=== PATIENT | female | born 1990 | race African-American/Black ===

== ENCOUNTER 2021-03-31 13:42 | Outpatient (CLI) | payer OTHER, SELFPAY ==
--- NOTE | ~2021-03-31 | US_ITS ---
EXAMINATION: US OB <= 14 weeks fetus DATE: 03/31/2021 14:18 INDICATION: Encounter for supervision and dating of normal during first trimester. TECHNIQUE: Real-time pelvic ultrasound utilizing transabdominal probe was performed. The andre vides radiologist was not present for the study. COMPARISON: None. FINDINGS: The uterus measures 11.2 x 8.7 x 8.3 cm. There is an intrauterine gestational sac. A yolk sac and fe dominick pole are identified. The crown rump length measures 2.2 cm, which correlates with an estimated ge stational age of 9 weeks and 0 days. heart motion is identified measuring 167 beats per minute (bpm) by M-mode Doppler. The bilateral ovaries are not visualized. There is no free fluid in the pelv is. IMPRESSION: 1. Single living fetus with heart rate of 167 bpm. 2. Gestational age by ultrasound of 9 weeks 0 day(s) +/- 6 day(s) with ultrasound estimated date of delivery (DIALLO) of 11/03/2021. Reviewed, dictated and finalized at location A. EBOARD OPERATOR IMPRESSION: 1. Single living fetus with heart rate of 167 bpm. 2. Gestational age by ultrasound of 9 weeks 0 day(s) +/- 6 day(s) with ultraso und estimated date of delivery (DIALLO) of 11/03/2021.
== END 2021-03-31 13:43 | disposition home or self-care (01) ==
PROVIDERS: Visit Provider Obstetrics & Gynecology
DX: Z34.91 Encounter for supervision of normal pregnancy, unspecified, first trimester (principal); Z3A.09 9 weeks gestation of pregnancy
CPT/HCPCS: 76801

== ENCOUNTER 2021-07-22 11:14 | Outpatient (CLI) | payer OTHER, SELFPAY ==
[2021-07-22 19:32] LABS: Basophils Percent Auto 0.3 % (0.2-1.2); Eosinophils Percent Auto 0.1 % (0-4.4); Hematocrit 37.3 % (37.0-47.0); Hemoglobin 11.8 g/dL (12.0-15.0); Immature Granulocyte Absolute 0.16 K/mm3 (0.00-0.031); Immature Granulocyte Percent A 1.4 % (0-0.5); Lymphocytes Absolute Auto 1.36 K/mm3 (0.9-3.2); Lymphocytes Percent Auto 11.6 % (18.3-44.2); Mean Corpuscular HGB Conc 31.6 g/dl (32-36); Mean Corpuscular Hemoglobin 31.9 pg (26-34); Mean Corpuscular Volume 100.8 fl (80-100); Monocytes Absolute Auto 0.4 K/mm3 (0.1-0.6); Monocytes Percent Auto 3.4 % (2.6-8.5); Neutrophils Absolute Auto 9.8 K/mm3 (1.3-6.7); Neutrophils Percent Auto 83.2 % (45.5-73.1); Platelet Count Result 232 k/mm3 (150-375); Red Cell Distribution Width 13.5 % (11.5-14.5); White Blood Count 11.7 K/mm3 (4.5-10.0)
[2021-07-22 19:40] LABS: Glucose 1 Hour PP 50gm Dose 112 mg/dL
[2021-07-22 21:27] LABS: Hepatitis B Surface Antigen Negative (Negative)
[2021-07-22 21:44] LABS: Hepatitis C Virus Antibody Negative (Negative)
[2021-07-22 21:57] LABS: Vitamin D 25 Hydroxy 22.9 ng/mL
== END 2021-07-22 11:15 | disposition home or self-care (01) ==
LOC: ANHBWCLAB 11:15
PROVIDERS: Visit Provider Student in an Organized Health Care Education/Training Program
DX: Z34.82 Encounter for supervision of other normal pregnancy, second trimester (principal); Z3A.00 Weeks of gestation of pregnancy not specified
CPT/HCPCS: 36415; 82306; 82947; 85025; 86803; 87340

== ENCOUNTER 2021-09-02 14:17 | Observation (INO) | payer OTHER, SELFPAY ==
[2021-09-02 14:49] VITALS: BP 120/60; PULSE 86
[2021-09-02 15:00] VITALS: BP 107/62; PULSE 87
--- NOTE | 2021-09-02 17:30 | OBADM ---
This patient, Karie Bran, admitted to the OB room OB Post 111 for observation. Patient/family oriented to hospital policies and general routines including ID bracelet, bed and alarms, visiting hours, pain management, procedures, bathroom and other care routines, personal items, smoking policy, room service/diet, and visiting hours. Patient/Family are encouraged to report perceived risks to care and to ask questions if they do not understand what they are told or what they should do.
--- NOTE | 2021-09-22 11:10 | PM.OBTRLD ---
OB - Triage/Final Diagnosis Visit Information Comments/Additional reasons for admission: I have assessed the risk for this patient, Karie Bran, and determined that she would benefit from observation care. Final Diagnosis (1) Spotting during : Code(s): O26.859 - Spotting complicating , unspecified trimester Status: Acute
== END 2021-09-02 15:30 | disposition home or self-care (01) ==
PROVIDERS: Admitting Provider Student in an Organized Health Care Education/Training Program; Visit Provider Student in an Organized Health Care Education/Training Program
DX: O26.853 Spotting complicating pregnancy, third trimester (principal); Z3A.31 31 weeks gestation of pregnancy
CPT/HCPCS: G0378; G0379

== ENCOUNTER 2021-09-23 10:11 | Observation (INO) | payer OTHER, SELFPAY ==
[2021-09-23] VITALS (8 sets, daily range): BP systolic 86–123; BP diastolic 47–71; PULSE 79–103; RESP 16; TEMP 36.8; BMI 35.4
--- NOTE | 2021-09-23 11:12 | OBADM ---
This patient, Karie Bran, admitted to the OB room 116 for observation for vaginal spotting. Patient/family oriented to hospital policies and general routines including ID bracelet, bed and alarms, visiting hours, pain management, procedures, bathroom and other care routines, personal items, smoking policy, room service/diet, and visiting hours. Patient/Family are encouraged to report perceived risks to care and to ask questions if they do not understand what they are told or what they should do.
[2021-09-23 11:35] LABS: Appearance Urine Clear (Clear); Bilirubin Urine Negative (Negative); Blood Urine 2+ (Negative); Color Urine Yellow (Yellow); Glucose Urine UA Negative (Negative); Ketones Urine Negative (Negative); Leukocyte Esterase Ur Negative LEU/UL (Negative); Nitrate Urine Negative (Negative); Protein Urine Negative (Negative); Urobilinogen Urine 0.2 mg/dL (<2.0)
[2021-09-23 11:47] LABS: Bacteria Urine Trace /hpf; RBC Urine 0-2 /hpf (0-2); Squamous Epithelial Cell Urine Rare /hpf (Few); WBC Urine 0-3 /hpf
[2021-09-23 11:48] LABS: Add Urine Microscopic? YES
[2021-09-23] MEDS: NIFEdipine 10 MG CAPSULE 20 MG PO (15:08)
[2021-09-23 17:45] LABS: Basophils Percent Auto 0.2 % (0.2-1.2); Eosinophils Percent Auto 0.2 % (0-4.4); Hematocrit 34.4 % (37.0-47.0); Hemoglobin 10.9 g/dL (12.0-15.0); Immature Granulocyte Absolute 0.09 K/mm3 (0.00-0.031); Immature Granulocyte Percent A 0.9 % (0-0.5); Lymphocytes Absolute Auto 1.68 K/mm3 (0.9-3.2); Mean Corpuscular HGB Conc 31.7 g/dl (32-36); Mean Corpuscular Hemoglobin 30.4 pg (26-34); Mean Corpuscular Volume 96.1 fl (80-100); Mean Platelet Volume 9.6 fl (7.4-10.4); Monocytes Absolute Auto 0.6 K/mm3 (0.1-0.6); Monocytes Percent Auto 5.3 % (2.6-8.5); Neutrophils Absolute Auto 8.1 K/mm3 (1.3-6.7); Neutrophils Percent Auto 77.4 % (45.5-73.1); Platelet Count Result 218 k/mm3 (150-375); Red Blood Count 3.58 M/mm3 (4.2-5.4); Red Cell Distribution Width 13.8 % (11.5-14.5); White Blood Count 10.5 K/mm3 (4.5-10.0)
[2021-09-23 18:45] LABS: HIV 1/2 Ab P24 Ag Result Negative (Negative)
[2021-09-24 07:04] LABS: Rapid Plasma Reagin Non-Reactive (NonReactive)
--- NOTE | 2021-10-09 12:11 | PM.OBTRLD ---
OB - Triage/Final Diagnosis Visit Information Comments/Additional reasons for admission: I have assessed the risk for this patient, Karie Bran, and determined that she would benefit from observation care. Evaluation Laboratory results: Laboratory Tests 09/23/21 09/23/21 09/23/21 11:28 17:21 17:21 WBC 10.5 H RBC 3.58 L Hgb 10.9 L Hct 34.4 L MCV 96.1 MCH 30.4 MCHC 31.7 L RDW 13.8 Plt Count 218 MPV 9.6 Immature Gran % (Auto) 0.9 H Neut % (Auto) 77.4 H Lymph % (Auto) 16.0 L [place] % (Auto) 5.3 Eos % (Auto) 0.2 Baso % (Auto) 0.2 Lymph # (Auto) 1.68 [place] # (Auto) 0.6 Eos # (Auto) 0.0 Baso # (Auto) 0.0 Abs Immat Gran (auto) 0.09 H Absolute Neuts (auto) 8.1 H Absolute Nucleated RBC 0.0 Nucleated RBC % 0.0 Urine Color Yellow Urine Appearance Clear Urine pH 7.0 Ur Specific [place] 1.010 Urine Protein Negative Urine Glucose (UA) Negative Urine Ketones Negative Ur Blood (Man) 2+ H Urine Nitrate Negative Urine Bilirubin Negative Urine Urobilinogen 0.2 Leukocyte Esterase Rfl Negative Urine RBC 0-2 Urine WBC 0-3 Ur Squamous Epith Cells Rare Urine Bacteria Trace RPR Non-reactive HIV 1&2 Ab/P24 Ag 4thGn 09/23/21 17:21 WBC RBC Hgb Hct MCV MCH MCHC RDW Plt Count MPV Immature Gran % (Auto) Neut % (Auto) Lymph % (Auto) [place] % (Auto) Eos % (Auto) Baso % (Auto) Lymph # (Auto) [place] # (Auto) Eos # (Auto) Baso # (Auto) Abs Immat Gran (auto) Absolute Neuts (auto) Absolute Nucleated RBC Nucleated RBC % Urine Color Urine Appearance Urine pH Ur Specific [place] Urine Protein Urine Glucose (UA) Urine Ketones Ur Blood (Man) Urine Nitrate Urine Bilirubin Urine Urobilinogen Leukocyte Esterase Rfl Urine RBC Urine WBC Ur Squamous Epith Cells Urine Bacteria RPR HIV 1&2 Ab/P24 Ag 4thGn Negative Final Diagnosis (1) Spotting during : Code(s): O26.859 - Spotting complicating , unspecified trimester Status: Acute (2) contractions: Code(s): O47.00 - False labor before 37 completed weeks of gestation, unspecified trimester Status: Acute
== END 2021-09-23 17:27 | disposition home or self-care (01) ==
PROVIDERS: Admitting Provider Student in an Organized Health Care Education/Training Program; Visit Provider Student in an Organized Health Care Education/Training Program
DX: O26.859 Spotting complicating pregnancy, unspecified trimester (principal); Z3A.00 Weeks of gestation of pregnancy not specified
CPT/HCPCS: 36415; 81001; 85025; 86592; 86703; A9270; G0378; G0379; G0432

== ENCOUNTER 2021-10-28 10:49 | Outpatient (CLI) | payer OTHER, SELFPAY ==
[2021-10-28 11:26] LABS: Hematocrit 33.5 % (37.0-47.0); Mean Corpuscular HGB Conc 32.8 g/dl (32-36); Mean Corpuscular Hemoglobin 30.1 pg (26-34); Mean Corpuscular Volume 91.8 fl (80-100); Mean Platelet Volume 9.8 fl (7.4-10.4); Platelet Count Result 231 k/mm3 (150-375); Red Blood Count 3.65 M/mm3 (4.2-5.4); Red Cell Distribution Width 13.8 % (11.5-14.5); White Blood Count 8.6 K/mm3 (4.5-10.0)
[2021-10-29 12:51] LABS: Rapid Plasma Reagin Non-Reactive (NonReactive)
== END 2021-10-28 10:50 | disposition home or self-care (01) ==
LOC: ANHLAB 10:51
PROVIDERS: Visit Provider Student in an Organized Health Care Education/Training Program
DX: Z34.93 Encounter for supervision of normal pregnancy, unspecified, third trimester (principal); Z3A.00 Weeks of gestation of pregnancy not specified
CPT/HCPCS: 36415; 85027; 86592; 86850; 86900; 86901

== ENCOUNTER 2021-10-29 05:31 | Inpatient (IN) | payer OTHER, SELFPAY ==
--- NOTE | 2021-10-06 12:54 | PC.NURSE ---
Patient states Dr Cisse is going to talk with her on Wednesday about date and time of C/S . patient states she is going to have a tubal ligation also-consent signed Patient given requisition for lab drawn and instructed to be in OB 2 hours before surgery time and nothing to eat or drink after midnight the night before surgery--Patient verbalized her understanding
--- NOTE | 2021-10-28 12:26 | PM.IMHP ---
H&P: HPI History of Present Illness Date/Time: 10/28/21 12:26 Chief Complaint: She is a here today for scheduled elective repeat section and tubal ligation. She has satisfied parity. She declines all other nonpermanent forms of contraception. ?First section was performed for failure to progress.? Second section was a scheduled repeat. She is 39 weeks and 2 days by last menstrual period of January 26, 2021 with an EDC of 11/02/2020 consistent with a 9 week ultrasound. Title course has been uncomplicated. Labs reviewed. GBS negative. Review of Systems Review of Systems: All systems reviewed & are unremarkable except as noted in HPI and below Constitutional: Constitutional: Reports no additional constitutional complaints and Denies headache(s) Eyes: Eyes: Denies spots in vision ENT: Reports system reviewed and no additional complaints, except as documented and Denies headache(s) Cardiovascular: Cardiovascular: Denies chest pain and Denies dyspnea Respiratory: Respiratory: Denies dyspnea Gastrointestinal: Gastrointestinal: Reports no additional gastrointestinal complaints Genitourinary: Genitourinary: Reports amenorrhea Musculoskeletal: Musculoskeletal: Reports no additional musculoskeletal complaints Integumentary/Breasts: Skin/Breast: Denies breast mass and Denies rash Neurologic: Denies headache(s) Psychiatric: Psychiatric: Reports no additional psychiatric complaints PMF Past Medical History Medical History Failure to progress in labor Surgical History Surgical History History of delivery x2 Family History Family History Other No pertinent family history Social History Social History Smoking status: Never smoker Alcohol intake: never Substance use: never Spiritual care concerns: No Meds Home Medications and Allergies Home Medications Medication Instructions Recorded Confirmed Type prenat.vits,garrison,gln-qykf-vvvik 1 tablet PO DAILY 05/23/21 09/23/21 History cholecalciferol (vitamin D3) 25 1,000 unit PO DAILY 09/23/21 09/23/21 History mcg (1,000 unit) capsule (Vitamin D3) Allergies Allergy/AdvReac Type Severity Reaction Status Date / Time No Known Allergies Allergy Verified 10/24/21 12:49 Exam Const: General: no acute distress Eyes: General: appearance normal, both eyes and all related structures Resp: Effort & Inspection: normal respiratory effort Cardio: Rate: regular rate GI: Other: Gravid no fundal tenderness no right upper quadrant pain Skin: General skin exam: no rashes or lesions noted Neuro: Cognition (Neuro): normal cognition Extrem: General: normal to inspection Psych: Mental Status: mental status grossly normal Assessment and Plan Assessment and plan (1) Previous section: Code(s): Z98.891 - History of uterine scar from previous surgery Status: Acute Assessment and Plan: desires repeat section will be performed on October 29. (2) Encounter for sterilization: Code(s): Z30.2 - Encounter for sterilization Status: Acute Assessment and Plan: She has been counseled and consent signed she continues to desire sterilization declines all other nonpermanent forms of contraception. We will perform bilateral tubal ligation With either interruption of the fallopian tubes bilaterally or removal of the distal fallopian tube.
[2021-10-29] VITALS (45 sets, daily range): BP systolic 56–138; BP diastolic 41–94; PULSE 56–87; RESP 12–23; TEMP 35.7–36.9; O2SAT 98–100; BMI 35.4; BMI 36.3
--- OUTSIDE RECORDS SUMMARY | 2021-10-29 05:37 | XMS_ITS ---
:1990 Author Care Team Providers Name Role Phone Trevor Jay Primary Care Provider Unavailable Allergies Code Code System Name Reaction Severity Status Onset NKDA ? Medications Name Status Start Date Stop Date ? ? acyclovir 400 mg tablet Completed ? 07/31/19 azithromycin 500 mg tablet Completed ? 04/05 Calcium 600 with Vitamin D3 600 mg-10 mcg (400 unit) capsule Act constance ? Not available Take 1 capsule twice a day by oral route. calcium carbonate 600 mg-vitamin D3 10 mcg (400 unit) Active ? Not available tablet ceftriaxone 250 mg solution for injection Completed ? 04/05/2017 Take 250 mg by injection route for 1 day. Colace 100 mg capsule Completed ? 04/05/2017 Take 1 capsule twice a day by oral route as needed. ferrous sulfate 325 mg (65 mg iron) tablet Completed ? 04/05/2017 Take 1 tablet 3 times a day by oral route. fluconazole 150 mg tablet Completed ? 2016 ibuprofen 800 mg tablet Completed ? 04/05/20 17 Take 1 tablet 3 times a day by oral route as needed. lorazepam 0.5 mg tablet Completed ? 04/05/20 17 Macrobid 100 mg capsule Completed ? 03/17/20 21 Take 1 capsule every 12 hours by oral route as directed for 7 d ays. metoclopramide 10 mg tablet Active ? Not available metronidazole 0.75 % vaginal gel Active ? Not available metronidazole 500 mg tablet Completed ? 05/2020 minocycline 50 mg capsule Completed ? 2016 multivitamin tablet Active ? Not availabl e Take 1 tablet every day by oral route. naproxen 500 mg tablet Completed ? 7
--- NOTE | 2021-10-29 06:19 | LDADM ---
This patient, Karie Bran, was admitted to Labor/Delivery/Recovery 120 on 10/29/21 at 05:31. Plans for labor, pain management and were discussed with patient. Patient/family oriented to hospital policies and general routines including ID bracelet, bed and alarms, visiting hours, pain management, procedures, bathroom and other care routines, personal items, smoking policy, room service/diet and guest tray routines, security routines, and visiting hours. Patient/Family are encouraged to report perceived risks to care and to ask questions if they do not understand what they are told or what they should do. See OBIX for further documentation.
[2021-10-29] MEDS: LACTATED RINGERS 1,000 ML 125 ML IV CONT (06:30)
--- NOTE | 2021-10-29 07:00 | P.PNAN_ITS ---
Anes - Initial Pre Proc Eval Procedure: Operation Date: 10/29/21 07:30 Proposed Procedures p Repeat Section with Bilateral Tubal Sterilization - Weston Obando MD Date/Time: 10/29/21 07:00 Surgeon: Edith Cisse MD Pre Op Diagnosis: C/S Patient Data Age: 31 Gender: F Height: 1.57 m Weight: 90 kg Last Vital Signs Pulse 86 10/29/21 06:10 BP 138/78 10/29/21 06:10 O2 Del Method Room Air 10/29/21 06:18 Allergies Allergy/AdvReac Type Severity Reaction Status Date / Time No Known Allergies Allergy Verified 10/24/21 12:49 Home Medications Medication Instructions Recorded Confirmed Type prenat.vits,garrison,sau-ljwb-qkkzz 1 tablet PO DAILY 05/23/21 10/29/21 History cholecalciferol (vitamin D3) 25 1,000 unit PO DAILY 09/23/21 10/29/21 History mcg (1,000 unit) capsule (Vitamin D3) Patient hx anesthesia problems: none Family hx anesthesia problems: none Results Review: All pre-operative results and documents have been reviewed as part of the pre- operative evaluation. PMFSH Past Medical History Medical History Failure to progress in labor Surgical History Surgical History History of delivery x2 Family History Family History Other No pertinent family history Social History Social History Smoking status: Never smoker Alcohol intake: never Substance use: never Spiritual care concerns: No Anes - Eval Final PreProcedure Day of Procedure 10/29/21 07:00 Patient weight: obese Heart: regular rate and rhythm Lungs: clear to auscultation and normal air movement Airway: Mallampati scale class II Neurological: alert and oriented Last oral intake: >/= 8 hours ASA classification: II Emergent: no Anesthetic plan: proceed Anesthesia type and monitoring: regional spinal and standard monitoring Results Review: All pre-operative results and documents have been reviewed as part of the pre- operative evaluation. Informed Consent: The patient's anesthetic plan and its attendant risks and benefits were discussed with the patient/family/POA. Questions were solicited and answers provided to the satisfaction of the patient/family/POA.
--- NOTE | 2021-10-29 07:06 | WPDHPUPDATE1 ---
History and Physical Update Update Date/Time: 10/29/21 07:06 History and Physical has been reviewed, including an updated exam of the patient. There are NO changes in the patient's condition. Risks, benefits, and alternatives have been discussed and questions answered. Patient agrees to proceed with procedure.
[2021-10-29] MEDS: ceFAZolin 2 GM/D5W 50 ML 2 GM/50 ML BAG IVPB (07:16)
[2021-10-29] MEDS: KETOROLAC 30 MG/ML VIAL (*BKC) 15 MG IV PUSH (07:55)
[2021-10-29] MEDS: OXYTOCIN 30 UNITS/NS 500 ML 30 UNITS/500 ML BAG 125 UNITS IV CONT (09:06)
--- NOTE | 2021-10-29 10:31 | W.PM.PROC2 ---
Procedure Note - Detailed Date of Procedure 10/29/21 Pre-op Diagnosis Elective repeat and desire for permanent sterilization. Post-op Diagnosis Same Procedure Performed Repeat low transverse ceserean section and bilateral tubal ligation. Surgeon Weston Obando MD Seo Consultant [facility] Anesthesia Spinal Indications Patient with two prior sections and desired repeat and desired permanent sterilization. Findings Uterus and fallopian tubes and ovaries normal appearing, apgars 8,9 female, 8lb7oz. Description of Procedure After informed consent, risks and benefits of the procedure was discussed with the patient. The patient was taken to the operating room where she was placed in the dorsal lithotomy position with leftward tilt. After the prior placed epidural anesthesia was found to be adequate, she was then prepped and draped in the usual sterile fashion. A Pfannenstiel skin incision was made with a scalpel along her prior scar and carried through to the underlying layer of fascia. The fascia was then nicked in the midline, extending bilaterally. The fascia, which was very adhesed, was dissected off the rectus muscles sharply and with cautery, superiorly and inferiorly. The peritoneum was entered sharply. Adhesions of the omental tissue was palpated superior to the opening of the peritoneum. The rectus muscles were in the midline. The pelvic organs were visualized. The bladder blade was then inserted. The vesicouterine peritoneum was identified and entered sharply with Metzenbaum scissors and extended bilaterally and then the bladder flap was created digitally. The lower uterine segment was noted to be thin. The low transverse uterine incision was then made with the scalpel and extended with bilateral index fingers in a crescent-shaped fashion. The head was delivered and the rest of the was delivered. The infant was vigorously crying upon delivery.. The nose and mouth suctioned. The cord was clamped twice and cut. The infant was then handed off to the awaiting pediatric staff. The placenta was then delivered manually. The uterine cavity was sponge curetted. The uterus was then exteriorized. The uterine incision was then closed with 0 vicryl in a running locked fashion. A figure of eight of 0 vicryl at the right of incision was used for hemostasis. Hemostasis noted. A second layer of 0 vicryl was used in an imbricating fashion for hemostasis. Attention was turned to the right fallopian tube which was grasped in the ampullary region and a segment enclosed with 0 plain gut suture x 2. The enclosed segment was excised with the metzenbaum scissors. Hemostasis at pedicle was obtained with cautery. The attention was then turned to left fallopian tube which grasped at the ampullary region with a ras. The segment was enclosed with 2 sutures of 0 plain. The enclosed segment was excised with metzenbaum scissors. Pedicles were cauterized and hemostasis obtained. The uterus was then returned to the abdomen. Bilateral gutters were cleared off all clots and debris. The tubal segments were inspected and noted to be hemostatic. The uterine incision was inspected and noted to be hemostatic. The muscle bellies were inspected, there was an area on the right that had a small ooze at muscle fibers and this was cauterized and hemostasis was noted. The subfascial layer was noted to be hemostatic, and the fascia was closed with 0 Vicryl in a running fashion. The subcutaneous layer was then closed with 3-0 Vicryl in a subcutaneous fashion. The skin was closed with Insorb absorbable yas. Skin dermabond applied at incision. All instruments, needle, and lap counts were correct x3. The patient was taken to the recovery room in stable condition. Estimated Blood Loss -700.0 Drains No Packing No Pathology Yes (segment of right and left fallopian tube) Complications No immediate complications Condition Stable Disposition Floor JOYA Haro
--- NOTE | 2021-10-29 10:50 | OBPPTRN ---
Patient transferred to post room #279 via stretcher. Support person present. Oriented to unit, room, information board, rooming in, admission packet and security measures. Patient verbalizes understanding.
[2021-10-29] MEDS: METHYLERGONOVINE MALEATE 0.2 MG TABLET PO ×2 (11:59→17:38)
[2021-10-29] MEDS: KCL 20 MEQ/D5/0.45% SOD CHL 1,000 ML 125 ML IV CONT (13:23)
[2021-10-29] MEDS: IBUPROFEN 600 MG TABLET PO ×2 (13:23→21:30)
[2021-10-29] MEDS: HYDROcodone/acetaminophen (*CRX) 5-325 MG TABLET 1 TAB PO (13:24)
--- NOTE | 2021-10-29 13:30 | PC.NURSE ---
Breast pump provided due to maternal preference. Instructions given on cleaning, care, usage, there should be no pain, pumping schedule for milk production, collection, and storage of human milk. Parents are encouraged to record pumping schedule on the feeding sheet. Patient was assessed for correct placement, flange size, to pump for comfort and nipple stretching/stimulation for adequate milk production. Mother voiced understanding of the education shared.
[2021-10-29] MEDS: DOCUSATE SODIUM 100 MG CAPSULE PO (16:34)
[2021-10-29] MEDS: MULTIVIT/MIN/PREN/FOL AC/IRON TABLET 1 TAB PO (16:34)
[2021-10-29] MEDS: HYDROcodone/acetaminophen (*CRX) 10-325 MG TABLET 1 TAB PO (16:34)
[2021-10-29] MEDS: SIMETHICONE 80 MG TAB.CHEW PO (21:31)
[2021-10-29] MEDS: oxyCODONE/ACETAMINOPHEN (*CRX) 5-325 MG TABLET PO (21:32)
[2021-10-30] VITALS: BP 126/77; PULSE 71; RESP 18; TEMP 36.8; O2SAT 98
[2021-10-30] MEDS: METHYLERGONOVINE MALEATE 0.2 MG TABLET PO ×2 (00:18→05:35)
[2021-10-30 04:00] VITALS: BP 127/86; PULSE 82; RESP 16; TEMP 36.8; O2SAT 100
[2021-10-30] MEDS: IBUPROFEN 600 MG TABLET PO ×3 (04:43→19:00)
[2021-10-30] MEDS: oxyCODONE/ACETAMINOPHEN (*CRX) 5-325 MG TABLET PO ×5 (04:44→19:03)
[2021-10-30] MEDS: SIMETHICONE 80 MG TAB.CHEW PO ×4 (04:44→17:52)
[2021-10-30 05:16] LABS: Basophils Percent Auto 0.3 % (0.2-1.2); Eosinophils Percent Auto 0.1 % (0-4.4); Hematocrit 32.8 % (37.0-47.0); Hemoglobin 10.9 g/dL (12.0-15.0); Immature Granulocyte Absolute 0.08 K/mm3 (0.00-0.031); Immature Granulocyte Percent A 0.7 % (0-0.5); Lymphocytes Percent Auto 10.5 % (18.3-44.2); Mean Corpuscular HGB Conc 33.2 g/dl (32-36); Mean Corpuscular Hemoglobin 31.1 pg (26-34); Mean Corpuscular Volume 93.4 fl (80-100); Mean Platelet Volume 10.2 fl (7.4-10.4); Monocytes Absolute Auto 0.9 K/mm3 (0.1-0.6); Monocytes Percent Auto 7.9 % (2.6-8.5); Neutrophils Absolute Auto 9.2 K/mm3 (1.3-6.7); Neutrophils Percent Auto 80.5 % (45.5-73.1); Platelet Count Result 205 k/mm3 (150-375); Red Blood Count 3.51 M/mm3 (4.2-5.4); Red Cell Distribution Width 13.7 % (11.5-14.5); White Blood Count 11.4 K/mm3 (4.5-10.0)
[2021-10-30 07:15] VITALS: BP 136/83; PULSE 70; RESP 16; TEMP 36.4; O2SAT 99
--- NOTE | 2021-10-30 08:17 | PM.OBPNVD ---
OB - PN: Subj Subjective Date/time seen: 10/30/21 08:17 Interval history: She reports adequate pain control. She has ambulated home. Lochia is decreasing. She is trying to attempt . Denies leg pain. No nausea. She has tolerated full liquids. OB - PN: Obj Data Labs CBC & Chem 7: 10/30/21 04:20 Labs: Laboratory Results - last 24 hr 10/30/21 04:20 WBC 11.4 H RBC 3.51 L Hgb 10.9 L Hct 32.8 L MCV 93.4 MCH 31.1 MCHC 33.2 RDW 13.7 Plt Count 205 MPV 10.2 Immature Gran % (Auto) 0.7 H Neut % (Auto) 80.5 H Lymph % (Auto) 10.5 L Wilkes % (Auto) 7.9 Eos % (Auto) 0.1 Baso % (Auto) 0.3 Lymph # (Auto) 1.20 Wilkes # (Auto) 0.9 H Eos # (Auto) 0.0 Baso # (Auto) 0.0 Abs Immat Gran (auto) 0.08 H Absolute Neuts (auto) 9.2 H Absolute Nucleated RBC 0.0 Nucleated RBC % 0.0 OB - PN A/P Plan Comments: POD1 s/p repeat c/s/tubal ligation. she is doing well. Routine post care. Encourage ambulation. Time Spent With Patient Time: Total time spent is greater than 50% in coordination of care (as documented) at patient's floor/unit and/or counseling patient: Exam Const: General: comfortable and no acute distress Eyes: General: appearance normal, both eyes and all related structures Resp: Effort & Inspection: normal respiratory effort Auscultation: clear to auscultation bilaterally Cardio: Rate: regular rate GI: Other: decreased bowel sounds, mildly distended, incision no drainage or erythema, intact : Other: hypoactive bowel some uterine below umbilicus firm appropriately tender Incision intact no drainage no erythema. Extrem: General: normal to inspection Other: nontender no edema Psych: Mental Status: mental status grossly normal Affect: normal affect
[2021-10-30] MEDS: MULTIVIT/MIN/PREN/FOL AC/IRON TABLET 1 TAB PO (09:00)
[2021-10-30] MEDS: DOCUSATE SODIUM 100 MG CAPSULE PO ×2 (09:00→17:52)
--- NOTE | 2021-10-30 11:07 | WPDANLDPN2 ---
Anes-Prog Note L&D Date/Time: 10/30/21 11:07 Neuraxial method: spinal Epidural/Spinal procedure site: clean & non-tender Neuro status: Neuro function grossly intact. Vital Signs: Last Vital Signs Temp 97.6 F 10/30/21 07:15 Pulse 70 10/30/21 07:15 Resp 16 10/30/21 07:15 BP 136/83 10/30/21 07:15 Pulse Ox 99 10/30/21 07:15 O2 Del Method Room Air 10/30/21 07:15 Pain score (VAS): 0 I/O: Intake & Output 10/29/21 10/30/21 10/30/21 23:59 07:59 15:59 Intake Total 1000 1060 Output Total 2350 Balance 1000 -1290 Post-procedural complaints: pruritis (peristent &moderate, no meds) Patient feedback: Patient satisfied with anesthetic care.
--- NOTE | 2021-10-30 11:08 | WPDANLDNPN2 ---
Anes-Prog Note L&D-Neuraxial Date/Time: 10/30/21 11:08 Neuraxial medications: intrathecal PF morphine Opiod-related complaints: pruritis (moderate, no meds) Patient feedback: Patient satisfied with post-operative pain management.
[2021-10-30] MEDS: diphenhydrAMINE HCl CAP 25 MG CAPSULE 50 MG PO (13:07)
[2021-10-30 19:00] VITALS: BP 109/67; PULSE 74; RESP 16; TEMP 36.7
[2021-10-31] MEDS: SIMETHICONE 80 MG TAB.CHEW PO ×3 (05:08→19:16)
[2021-10-31] MEDS: IBUPROFEN 600 MG TABLET PO ×2 (05:09→13:38)
[2021-10-31] MEDS: oxyCODONE/ACETAMINOPHEN (*CRX) 5-325 MG TABLET PO ×4 (05:09→19:16)
[2021-10-31 07:20] VITALS: BP 143/63; PULSE 73; RESP 18; TEMP 36.8; O2SAT 100
--- NOTE | 2021-10-31 08:39 | PM.OBPNVD ---
OB - PN: Subj Subjective Date/time seen: 10/31/21 08:39 Interval history: She reports she feels more discomfort than she recalls with her last . She rates her pain at 5-6 it is helped when she takes her oral pain medicine. It sounds like she did have some pain in her shoulders which did resolve. She has not ambulated in the [place] she states she has ambulated in the room. Lochia is decreasing. She is trying to attempt . Denies leg pain. No nausea. She has tolerated Regular diet. No flatus. OB - PN: Obj Data Labs CBC & Chem 7: 10/30/21 04:20 OB - PN A/P Plan Comments: postop day 2 status post repeat and tubal ligation. She was encouraged to ambulate more. We will give a suppository. Continue routine postop care. Time Spent With Patient Time: Total time spent is greater than 50% in coordination of care (as documented) at patient's floor/unit and/or counseling patient: Exam Const: General: comfortable and no acute distress Resp: Effort & Inspection: normal respiratory effort Auscultation: clear to auscultation bilaterally Cardio: Rate: regular rate Rhythm: regular rhythm GI: Other: Mildly distended uterus fundus for -1 umbilicus nontender and incision intact dry no drainage. Bowel sounds present upper abdomen slightly less on left Neuro: General: oriented to person, oriented to place and oriented to time Extrem: General: normal to inspection and no calf tenderness Psych: Mental Status: mental status grossly normal Affect: normal affect
[2021-10-31] MEDS: MULTIVIT/MIN/PREN/FOL AC/IRON TABLET 1 TAB PO (09:53)
[2021-10-31] MEDS: DOCUSATE SODIUM 100 MG CAPSULE PO ×2 (09:56→19:16)
[2021-10-31] MEDS: BISACODYL 10 MG SUPPOSITORY RECTAL (09:56)
--- NOTE | 2021-10-31 13:52 | PC.NURSE ---
Primary RN reported to RN this morning that mother has decided to not put baby to breast but rather she chose to pump and feed.
[2021-10-31 19:10] VITALS: BP 132/77; PULSE 78; RESP 16; TEMP 36.5; O2SAT 99
[2021-11-01] MEDS: IBUPROFEN 600 MG TABLET PO (00:31)
[2021-11-01] MEDS: oxyCODONE/ACETAMINOPHEN (*CRX) 5-325 MG TABLET PO ×3 (00:32→09:13)
[2021-11-01] MEDS: LANOLIN (LANSINOH) 7.5 GM CREAM 1 APPLIC TOPICAL (00:46)
[2021-11-01 08:08] VITALS: BP 122/75; PULSE 95; RESP 18; TEMP 36.9; O2SAT 100
[2021-11-01] MEDS: MULTIVIT/MIN/PREN/FOL AC/IRON TABLET 1 TAB PO (09:13)
[2021-11-01] MEDS: DOCUSATE SODIUM 100 MG CAPSULE PO (09:13)
[2021-11-01] MEDS: SIMETHICONE 80 MG TAB.CHEW PO (09:13)
--- NOTE | 2021-11-01 09:33 | PM.OBPNVD ---
OB - PN: Subj Subjective Date/time seen: 11/01/21 09:33 She states pain controlled. She has ambulated without problems. Positive flatus. Positive BM. No leg pain. No emesis or nausea. OB - PN: Obj Data Labs CBC & Chem 7: 10/30/21 04:20 OB - PN A/P Plan day: 3 Plan: discharge home Comments: discussed discharge precautions. Follow up in 2-3 weeks. Time Spent With Patient Time: Total time spent is greater than 50% in coordination of care (as documented) at patient's floor/unit and/or counseling patient: Exam Const: General: comfortable and no acute distress Resp: Effort & Inspection: normal respiratory effort Auscultation: clear to auscultation bilaterally Cardio: Rate: regular rate GI: Other: good bowel sounds throughout, nondistended, incision clean dry intact Extrem: General: normal to inspection and no calf tenderness Psych: Mental Status: mental status grossly normal Affect: normal affect
--- NOTE | 2021-11-01 12:00 | PC.NURSE ---
Patient viewed the discharge video Mother & Baby Care, The First Two Weeks . Patient was given the opportunity and encouraged to ask questions. Patient verbalized understanding of information shared and has been given the mother/baby guide for home reference.
[2021-11-03 10:49] VITALS: BP 138/80; PULSE 65; RESP 20; TEMP 36.6; O2SAT 100
--- NOTE | 2021-11-24 15:32 | PM.OBDSVD ---
DS: Admitting Diagnosis Discharge Date 11/01/21 Admitting Diagnosis Elective repeat section. Undesired fertility. DS: Discharge Diagnosis Discharge Diagnosis (1) Previous section: Code(s): Z98.891 - History of uterine scar from previous surgery Status: Acute (2) Encounter for sterilization: Code(s): Z30.2 - Encounter for sterilization Status: Acute OB - DS: Summary Hospital Course Hospital Course: Patient admitted for elective repeat section and tubal ligation. She had an uncomplicated repeat section and tubal ligation. she did well on day 1. She was encouraged to ambulated. On post op day 2. She states pain not as well controlled. Lochia was decreasing Her pain medication was switched to Oxycodone. This did help her pain control. On Post op day 3. She had improved pain control. She was ambulating well and tolerating regular diet and had positive flatus and was discharged home with precautions. OB Procedures : Ultrasound OB Procedures Intrapartum: and Tubal ligation OB Procedures: : None Peripartum Data Delivery Method: Section Procedures: Procedures Operation Date: 10/29/21 07:30 Actual Procedure Side Surgeon p Repeat Section with Bilateral Tubal Sterilization Bilateral Weston Obando MD Status at Discharge Functional status at discharge: independent ambulation Time Spent with Patient Time attestation: Total time spent providing and/or coordinating discharge services: Exam Const: General: cooperative Orientation/consciousness: oriented to person, oriented to place and oriented to time HENMT: General nose exam: Normal external nose present Eyes: General: appearance normal, both eyes and all related structures Resp: Effort & Inspection: normal respiratory effort GI: Inspection: normal to inspection Other: incision intact Skin: General skin exam: normal color Neuro: General: oriented to person, oriented to place and oriented to time Extrem: General: normal to inspection and no calf tenderness Psych: Appearance: grossly normal Mental Status: mental status grossly normal DS: Data Data Completed and Pending Completed studies during hospitalization: Pending at discharge 10/29/21 09:00 Surgical [PTH] Routine Discharge Plan Discharge Attending physician on discharge: Edith Cisse Consulting providers: Cipriano Beebe ; Willa Razo Discharging Clinician: Weston Obando Anticipated Discharge Date/Time: 06/18/22 09:37 Patient Disposition: Home, Self-Care Activity: may shower, no straining, may drive after 2 weeks and pelvic rest Diet: regular Discharge Instructions: Education: Mom and Baby Guide Given to: Mother Follow-Up: Call your delivering provider's office for an appointment to be seen in: 2-3 Weeks Mom and baby should come to the [facility] for the follow-up appointment. Appointment Date/Time: November 03, 2021 at 11:00 am What to expect at your follow-up visit: Blood Pressure Check Physical Assessment Call [phone] if you are unable to keep your appointment time. BREAST CARE: * Wear a snug supportive bra. * For engorgement discomfort: Breast Feeding: * Apply warm moist washcloths * Express milk as needed to relieve engorgement * Wear loose clothing Bottle Feeding: * May apply ice packs * For sore nipples: * Identify correct latch-on * Apply warm moist washcloths before and after nursing * Air dry nipples after nursing * May apply Lansinoh cream to nipples ABDOMINAL INCISION: (if applicable) * Allow incision to air dry * Do NOT use lotions for powders on your incision * When showering, allow soap and water to run over the incision, but do not wash incision PERINEAL CARE: * Until bleeding stops, use
== END 2021-11-01 12:30 | disposition home or self-care (01) | DRG 540 ==
LOC: ANHLDR 05:35 → ANHOB2 11-01 09:43 → ANHLDR 11-04 07:59 → ANHOB2 11-04 07:59
PROVIDERS: Admitting Provider Student in an Organized Health Care Education/Training Program; Visit Provider Obstetrics & Gynecology
PROC: 10D00Z1 Extraction of Products of Conception, Low, Open Approach (ICD-10-PCS; CPT 59514; principal; 2021-10-29 07:30)
DX: O34.211 Maternal care for low transverse scar from previous cesarean delivery (principal); Z37.0 Single live birth; Z3A.39 39 weeks gestation of pregnancy; Z30.2 Encounter for sterilization
CPT/HCPCS: 36415; 85025; 88302; A9270; J0131; J0690; J1885; J2274; J2405; J2590; J3480; J7120